=== PATIENT | male | born 1975 | race American Indian/Alaskan Native ===

== ENCOUNTER 2017-07-29 03:09 | Emergency (ER) | payer OTHER ==
[2017-07-29] MEDS ORDERED: TETRACAINE 0.5% ONE (04:47)
[2017-07-29] MEDS ORDERED: FUL-GLO OP ONE (04:48)
[2017-07-29] MEDS ORDERED: TETRACAINE 0.5% OU ONE (04:48)
[2017-07-29] MEDS ORDERED: WATER FOR IRRIG STERILE IR ONE (04:49)
[2017-07-29] MEDS ORDERED: WATER FOR INJ (PF) IV ONE (06:00)
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
[2017-07-29] MEDS ORDERED: MOTRIN PO ONE (06:25)
[2017-07-29 06:37] VITALS: BP 135/87
== END 2017-07-29 06:35 | disposition home or self-care (01) ==
LOC: ED 03:09
DX: T15.02XA Foreign body in cornea, left eye, initial encounter (principal); W45.8XXA Other foreign body or object entering through skin, initial encounter; Y93.89 Activity, other specified; Y92.89 Other specified places as the place of occurrence of the external cause; Y99.8 Other external cause status

== ENCOUNTER 2019-07-05 10:56 | Emergency (ER) | payer OTHER ==
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
[2019-07-05 16:43] VITALS: BP 136/88
== END 2019-07-05 16:43 | disposition home or self-care (01) ==
LOC: ED 10:56
DX: M54.5 Low back pain (principal); M54.2 Cervicalgia; Z79.899 Other long term (current) drug therapy; V49.49XA Driver injured in collision with other motor vehicles in traffic accident, initial encounter; Y93.89 Activity, other specified; Y92.410 Unspecified street and highway as the place of occurrence of the external cause; Y99.8 Other external cause status
CPT/HCPCS: 72040

== ENCOUNTER 2021-03-03 10:34 | Emergency (ER) | payer SELFPAY ==
[2021-03-03 10:47] VITALS: BP 133/83
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
== END 2021-03-03 11:00 | disposition home or self-care (01) ==
LOC: ED 10:34
DX: S80.00XA Contusion of unspecified knee, initial encounter (principal); Y99.8 Other external cause status; X58.XXXA Exposure to other specified factors, initial encounter; Y93.89 Activity, other specified; Y92.89 Other specified places as the place of occurrence of the external cause
CPT/HCPCS: 99281

== ENCOUNTER 2021-05-30 14:28 | Emergency (ER) | payer OTHER ==
[2021-05-30 14:32] VITALS: BP 112/78
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
== END 2021-05-30 15:28 | disposition home or self-care (01) ==
LOC: ED 14:28
DX: S16.1XXA Strain of muscle, fascia and tendon at neck level, initial encounter (principal); S39.012A Strain of muscle, fascia and tendon of lower back, initial encounter; V49.49XA Driver injured in collision with other motor vehicles in traffic accident, initial encounter; X58.XXXA Exposure to other specified factors, initial encounter; Y93.89 Activity, other specified; Y92.89 Other specified places as the place of occurrence of the external cause; Y99.8 Other external cause status
CPT/HCPCS: 99282